=== PATIENT | male | born 1970 | race Caucasian/White ===

== ENCOUNTER → 2016-11-26 | Outpatient (CLI) | payer BC ==
--- NOTE | 2016-11-26 08:25 | MR ---
EXAMINATION TYPE: MR knee RT wo con DATE OF EXAM: 11/26/2016 8:11 AM COMPARISON: NONE HISTORY: Right knee pain TECHNIQUE: Multiplanar, multiecho imaging of the right knee is performed without IV contrast on a 3 T esla magnet. FINDINGS: There is mild grade IV chondromalacia involving the lateral patellar facet. There is grade III chondromalacia involving the weightbearing surface of the lateral femoral condyle. The medial fem oral condyle is unremarkable. Both menisci are unremarkable. Both the anterior and posterior cruciate ligaments are intact. Both the medial and lateral collateral ligament complexes are intact. The iliotibial band inserts nor jesse on Gerdy's tubercle. The popliteus muscle and tendon are normal. Both the quadriceps and patellar tendons are intact. There is no significant swelling in the Hoffa fa t space. No osseous lesion is seen. IMPRESSION: 1. CHONDROMALACIA DESCRIBED. 2. NO MENISCAL OR LIGAMENTOUS INJURY IS IDENTIFIED.
== END | disposition home or self-care (01) ==
LOC: RADMRIMAIN 07:32
PROVIDERS: ATTEND Orthopaedic Surgery
DX: M22.41 Chondromalacia patellae, right knee (principal)

== ENCOUNTER 2018-01-31 20:57 | Emergency (ER) | payer BC ==
[2018-01-31] MEDS ORDERED: MECLIZINE 12.5 MG TAB PO STA (22:14)
[2018-01-31] MEDS ORDERED: SODIUM CHLORIDE 0.9% 1,000 ML IV STA (22:14)
[2018-01-31] MEDS ORDERED: METOCLOPRAMIDE 5 MG/ML 2 ML VIAL IVP STA (22:16)
--- NOTE | 2018-01-31 22:19 | ED ---
General Adult HPI - General Chief complaint: Dizziness Stated complaint: near syncope Time Seen by Provider: 01/31/18 22:08 Source: patient, family, RN notes reviewed Mode of arrival: ambulatory Limitations: no limitations - History of Present Illness Initial comments: Patient is a pleasant 47-year-old male presenting to the emergency department with lightheadedness. Onset was a couple hours ago. Symptoms remained steady. Patient states he feels very lightheaded. Patient states when he closes his eyes he feels as if he passed out. Patient did not pass out. Symptoms have been somewhat steady. Patient did have a syncopal episode several months ago. No chest pain or dyspnea. No weakness or confusion. - Related Data Home Medications Medication Instructions Recorded Confirmed Albuterol Inhaler [Ventolin 2 puff INHALATION RT-QID PRN 10/03/15 01/31/18 Inhaler] Losartan [Cozaar] 50 mg PO DAILY 07/01/17 01/31/18 Montelukast [Singulair] 10 mg PO DAILY 07/01/17 01/31/18 Previous Rx's Medication Instructions Recorded Meclizine [Antivert] 25 mg PO TID PRN #12 tab 01/31/18 Metoclopramide HCl [Reglan] 10 mg PO Q6HR PRN #15 tablet 01/31/18 Allergies Allergy/AdvReac Type Severity Reaction Status Date / Time No Known Allergies Allergy Verified 01/31/18 21:38 Review of Systems ROS Statement: Those systems with pertinent positive or pertinent negative responses have been documented in the HPI. ROS Other: All systems not noted in ROS Statement are negative. Constitutional: Denies: fever Eyes: Denies: eye pain ENT: Denies: ear pain Respiratory: Denies: cough Cardiovascular: Denies: chest pain Endocrine: Denies: fatigue Gastrointestinal: Reports: nausea. Denies: abdominal pain Genitourinary: Denies: dysuria Musculoskeletal: Denies: back pain Skin: Denies: rash Neurological: Denies: headache, weakness, confusion Past Medical History Past Medical History: Asthma, Hypertension History of Any Multi-Drug Resistant Organisms: None Reported Past Surgical History: No Surgical Hx Reported Past Psychological History: No Psychological Hx Reported Smoking Status: Never smoker Past Alcohol Use History: Occasional Past Drug Use History: None Reported General Exam Limitations: no limitations General appearance: alert, in no apparent distress Head exam: Present: atraumatic Eye exam: Present: normal appearance, PERRL, EOMI. Absent: nystagmus ENT exam: Present: normal oropharynx Neck exam: Present: normal inspection Respiratory exam: Present: normal lung sounds bilaterally Cardiovascular Exam: Present: regular rate, normal rhythm GI/Abdominal exam: Present: soft. Absent: tenderness Extremities exam: Present: normal inspection. Absent: pedal edema, calf tenderness Neurological exam: Present: alert, oriented X3, CN II-XII intact. Absent: motor sensory deficit Expanded Neurological exam: Present: protecting the airway Speech: Present: fluid speech Cranial nerves: EOM's Intact: Normal, Facial Sensation: Normal Cerebellar function: Finger to Nose: Normal Sensory exam: Upper Extremity Light Touch: Normal, Lower Extremity Light Touch: Normal Motor strength exam: RUE: 5, LUE: 5, RLE: 5, LLE: 5 Eye Response: (4) open spontaneously Motor Response: (6) obeys commands Verbal Response: (5) oriented Psychiatric exam: Present: normal affect, normal mood Skin exam: Present: normal color Course Vital Signs 01/31/18 01/31/18 21:27 22:25 Temperature 99.4 F Pulse Rate 81 79 Respiratory 20 18 Rate Blood Pressure 198/107 167/86 O2 Sat by Pulse 99 98 Oximetry EKG Findings - EKG Comments: EKG Findings:: Normal sinus rhythm 76. CO 176. QRS 100. QT 390. QTC 438. Normal axis. LVH criteria. Inferior Q waves. No acute ST change. Medical Decision Making - Medical Decision Making Patient reevaluated and significantly improved. Patient is symptom-free. Patient and family updated on results. - Lab Data Result diagrams: 01/31/18 21:44 01/31/18 21:44 Lab Results 01/31/18 01/31/18 01/31/18 Range/Units 21:44 21:44 21:44 WBC 7.7 (3.8-10.6) k/uL RBC 5.88 (4.30-5.90) m/uL Hgb 16.2 (13.0-17.5) gm/dL Hct 47.5 (39.0-53.0) % MCV 80.7 (80.0-100.0) fL MCH 27.5 (25.0-35.0) pg MCHC 34.1 (31.0-37.0) g/dL RDW 13.7 (11.5-15.5) % Plt Count 376 (150-450) k/uL Neutrophils % 54 % Lymphocytes % 33 % Monocytes % 7 % Eosinophils % 4 % Basophils % 0 % Neutrophils # 4.2 (1.3-7.7) k/uL Lymphocytes # 2.6 (1.0-4.8) k/uL Monocytes # 0.5 (0-1.0) k/uL Eosinophils # 0.3 (0-0.7) k/uL Basophils # 0.0 (0-0.2) k/uL PT (9.0-12.0) sec INR (<1.2) APTT (22.0-30.0) sec Sodium 140 (137-145) mmol/L Potassium 4.0 (3.5-5.1) mmol/L Chloride 100 (98-107) mmol/L Carbon Dioxide 25 (22-30) mmol/L Anion Gap 15 mmol/L BUN 14 (9-20) mg/dL Creatinine 1.05 (0.66-1.25) mg/dL Est GFR (CKD-EPI)AfAm >90 (>60 ml/min/1.73 sqM) Est GFR (CKD-EPI)NonAf 85 (>60 ml/min/1.73 sqM) Glucose 118 H (74-99) mg/dL Calcium 10.2 (8.4-10.2) mg/dL Total Bilirubin 0.4 (0.2-1.3) mg/dL AST 26 (17-59) U/L ALT 29 (21-72) U/L Alkaline Phosphatase 74 (38-126) U/L Total Creatine Kinase 89 (55-170) U/L CK-MB (CK-2) 0.6 (0.0-2.4) ng/mL CK-MB (CK-2) Rel Index 0.7 Troponin I <0.012 (0.000-0.034) ng/mL Total Protein 7.9 (6.3-8.2) g/dL Albumin 4.7 (3.5-5.0) g/dL 01/31/18 Range/Units 21:44 WBC (3.8-10.6) k/uL RBC (4.30-5.90) m/uL Hgb (13.0-17.5) gm/dL Hct (39.0-53.0) % MCV (80.0-100.0) fL MCH (25.0-35.0) pg MCHC (31.0-37.0) g/dL RDW (11.5-15.5) % Plt Count (150-450) k/uL Neutrophils % % Lymphocytes % % Monocytes % % Eosinophils % % Basophils % % Neutrophils # (1.3-7.7) k/uL Lymphocytes # (1.0-4.8) k/uL Monocytes # (0-1.0) k/uL Eosinophils # (0-0.7) k/uL Basophils # (0-0.2) k/uL PT 9.5 (9.0-12.0) sec INR 1.0 (<1.2) APTT 24.3 (22.0-30.0) sec Sodium (137-145) mmol/L Potassium (3.5-5.1) mmol/L Chloride (98-107) mmol/L Carbon Dioxide (22-30) mmol/L Anion Gap mmol/L BUN (9-20) mg/dL Creatinine (0.66-1.25) mg/dL Est GFR (CKD-EPI)AfAm (>60 ml/min/1.73 sqM) Est GFR (CKD-EPI)NonAf (>60 ml/min/1.73 sqM) Glucose (74-99) mg/dL Calcium (8.4-10.2) mg/dL Total Bilirubin (0.2-1.3) mg/dL AST (17-59) U/L ALT (21-72) U/L Alkaline Phosphatase (38-126) U/L Total Creatine Kinase (55-170) U/L CK-MB (CK-2) (0.0-2.4) ng/mL CK-MB (CK-2) Rel Index Troponin I (0.000-0.034) ng/mL Total Protein (6.3-8.2) g/dL Albumin (3.5-5.0) g/dL - Radiology Data Radiology results: report reviewed (Computed tomography scan of the brain shows no acute process), image reviewed (Chest x-ray shows no acute process) Disposition Clinical Impression: Light-headedness Disposition: HOME SELF-CARE Condition: Stable Instructions: Dizziness (ED) Additional Instructions: Please follow-up with primary care physician in the next day or 2 for recheck. If symptoms continue consider neurology or ENT evaluation. Return for increased dizziness, confusion, weakness, worsening or changing symptoms or other concerns. Prescriptions: Meclizine [Antivert] 25 mg PO TID PRN #12 tab PRN Reason: dizziness Metoclopramide HCl [Reglan] 10 mg PO Q6HR PRN #15 tablet PRN Reason: Nausea Is patient prescribed a controlled substance at d/c from ED?: No Referrals: Kit Bhatt DO [Primary Care Provider] - 1-2 days Time of Disposition: 23:39
[2018-01-31 22:26] VITALS: RESP 18
[2018-01-31 22:29] LABS: Basophils % (A) 0 %; Eosinophils # (A) 0.3 k/uL (0-0.7); Eosinophils % (A) 4 %; HCT 47.5 % (39.0-53.0); HGB 16.2 gm/dL (13.0-17.5); Lymphocytes # (A) 2.6 k/uL (1.0-4.8); Lymphocytes % (A) 33 %; MCH 27.5 pg (25.0-35.0); MCHC 34.1 g/dL (31.0-37.0); MCV 80.7 fL (80.0-100.0); Mean Platelet Volume 6.8; Monocytes # (A) 0.5 k/uL (0-1.0); Monocytes % (A) 7 %; Neutrophils # (A) 4.2 k/uL (1.3-7.7); Neutrophils % (A) 54 %; Platelet Count 376 k/uL (150-450); RBC 5.88 m/uL (4.30-5.90); RDW 13.7 % (11.5-15.5); WBC 7.7 k/uL (3.8-10.6)
[2018-01-31 22:36] LABS: ALT 29 U/L (21-72); AST 26 U/L (17-59); Albumin 4.7 g/dL (3.5-5.0); Alkaline Phosphatase 74 U/L (38-126); Anion Gap 15 mmol/L; Blood Urea Nitrogen 14 mg/dL (9-20); Calcium 10.2 mg/dL (8.4-10.2); Carbon Dioxide 25 mmol/L (22-30); Chloride 100 mmol/L (98-107); Glucose 118 mg/dL (74-99); Sodium 140 mmol/L (137-145); Total Bilirubin 0.4 mg/dL (0.2-1.3); Total Protein 7.9 g/dL (6.3-8.2)
[2018-01-31 22:38] LABS: Partial Thromboplastin Time 24.3 sec (22.0-30.0); Prothrombin Time 9.5 sec (9.0-12.0)
[2018-01-31 22:43] LABS: Creatine Kinase 89 U/L (55-170)
[2018-01-31 22:55] LABS: Creatine Kinase MB 0.6 ng/mL (0.0-2.4); Troponin I <0.012 ng/mL (0.000-0.034)
--- NOTE | 2018-01-31 23:20 | CT ---
EXAMINATION TYPE: CT brain wo con DATE OF EXAM: 01/31/2018 COMPARISON: 07/01/2017 HISTORY: Dizziness and near syncope. CT DLP: 1199 mGycm. Automated Exposure Control for Dose Reduction was Utilized. TECHNIQUE: CT scan of the head is performed without contrast. FINDINGS: Ventricles of normal size. There is no mass effect nor midline shift. There is no sign of intracranial hemorrhage. The calvarium is intact. CONCLUSION: Normal CT scan of the brain. No change.
--- NOTE | 2018-01-31 23:25 | XR ---
EXAMINATION TYPE: XR chest 2V DATE OF EXAM: 01/31/2018 COMPARISON: 07/01/2017 HISTORY: Syncope TECHNIQUE: Frontal and lateral views of the chest are obtained. FINDINGS: Heart and mediastinum are normal. Lungs are clear. Diaphragm is normal. There are chest le ads. Bony thorax is intact. IMPRESSION: No active cardiopulmonary disease. There is slight improved inspiration compared to old exam.
[2018-01-31 23:51] VITALS: BP 140/51; PULSE 77; TEMP 97.7
== END 2018-01-31 23:50 | disposition home or self-care (01) ==
LOC: EC 20:57
DX: R42 Dizziness and giddiness (principal); J45.909 Unspecified asthma, uncomplicated; I10 Essential (primary) hypertension; Z79.899 Other long term (current) drug therapy
CPT/HCPCS: 99284; 96374; 96361; 36415; 93005; 80053; 82550; 82553; 84484; 85025; 85610; 85730; 71046; 70450; J2765

== ENCOUNTER 2018-05-23 03:43 | Emergency (ER) | payer BC ==
[2018-05-23 03:47] VITALS: TEMP 97.9
[2018-05-23] MEDS ORDERED: IPRATROPIUM-ALBUTEROL 3 ML NEB INHALATION STA (03:59)
[2018-05-23] MEDS ORDERED: predniSONE 20 MG TAB PO STA (04:46)
--- NOTE | 2018-05-23 04:47 | ED ---
SOB HPI - General Chief Complaint: Shortness of Breath Stated Complaint: JA Time Seen by Provider: 05/23/18 04:07 Source: patient Mode of arrival: ambulatory Limitations: no limitations - History of Present Illness Initial Comments: This patient is a 47-year-old man with a history of asthma who presents to be evaluated for what he believes is an asthma exacerbation. The patient states that he has been feeling symptoms consistent with his usual asthma exacerbation symptoms since this evening. He states that he knew he was going to work where it would be hotter and when his home albuterol was not bringing him back to his baseline breathing he decided to be evaluated here. The patient states he has had a little bit of cough he has had some wheezing. He is not having fever or chills. No chest pain. No change in urination or bowel movements. No leg pain or swelling. Patient states that his asthma is usually managed with albuterol. His last course of prednisone was many years ago. MD Complaint: shortness of breath, cough, "asthma attack" Onset/Timin -: hour(s) Consistency: constant Improves With: bronchodilators Worsens With: other Known History Of: asthma Associated Symptoms: cough Treatments Prior to Arrival: bronchodilator - Related Data Home Medications Medication Instructions Recorded Confirmed Albuterol Inhaler [Ventolin 2 puff INHALATION RT-QID PRN 10/03/15 01/31/18 Inhaler] Losartan [Cozaar] 50 mg PO DAILY 07/01/17 01/31/18 Montelukast [Singulair] 10 mg PO DAILY 07/01/17 01/31/18 Previous Rx's Medication Instructions Recorded Meclizine [Antivert] 25 mg PO TID PRN #12 tab 01/31/18 Metoclopramide HCl [Reglan] 10 mg PO Q6HR PRN #15 tablet 01/31/18 predniSONE 60 mg PO DAILY #30 tab 05/23/18 Allergies Allergy/AdvReac Type Severity Reaction Status Date / Time No Known Allergies Allergy Verified 05/23/18 03:47 Review of Systems ROS Statement: Those systems with pertinent positive or pertinent negative responses have been documented in the HPI. ROS Other: All systems not noted in ROS Statement are negative. Constitutional: Denies: fever, chills, weakness Respiratory: Reports: cough, dyspnea, wheezes. Denies: hemoptysis Cardiovascular: Denies: chest pain, edema, syncope Gastrointestinal: Denies: abdominal pain, vomiting, diarrhea Genitourinary: Denies: dysuria, frequency Musculoskeletal: Denies: back pain Neurological: Denies: headache Past Medical History Past Medical History: Asthma, Hypertension History of Any Multi-Drug Resistant Organisms: None Reported Past Surgical History: No Surgical Hx Reported Past Psychological History: No Psychological Hx Reported Smoking Status: Never smoker Past Alcohol Use History: Occasional Past Drug Use History: None Reported General Exam Limitations: no limitations General appearance: alert, in no apparent distress Head exam: Present: atraumatic, normocephalic Eye exam: Present: normal appearance. Absent: scleral icterus, conjunctival injection ENT exam: Present: normal oropharynx Respiratory exam: Present: wheezes. Absent: respiratory distress, rales, rhonchi, stridor, chest wall tenderness, accessory muscle use, decreased breath sounds, prolonged expiratory Cardiovascular Exam: Present: regular rate, normal rhythm, normal heart sounds. Absent: systolic murmur, diastolic murmur, rubs, gallop GI/Abdominal exam: Present: soft. Absent: distended, tenderness, guarding, rebound, mass Extremities exam: Present: normal inspection, normal capillary refill. Absent: pedal edema, calf tenderness Back exam: Present: normal inspection. Absent: CVA tenderness (R) Neurological exam: Present: alert Skin exam: Present: warm, dry, intact, normal color. Absent: rash Course Vital Signs 05/23/18 05/23/18 05/23/18 03:45 04:00 04:10 Temperature 97.9 F Pulse Rate 74 80 80 Respiratory 22 Rate Blood Pressure 148/91 O2 Sat by Pulse 100 Oximetry 05/23/18 05:11 Temperature Pulse Rate 78 Respiratory 16 Rate Blood Pressure 132/89 O2 Sat by Pulse 99 Oximetry Medical Decision Making - Medical Decision Making This patient is a 47-year-old man having typical asthma exacerbation symptoms for him. He has had good relief with nebulized albuterol here. Given that he has required a number of treatments tonight, will provide short course of prednisone. Discussed appropriate follow-up and return parameters. Disposition Clinical Impression: Asthma with acute exacerbation Disposition: HOME SELF-CARE Condition: Good Instructions: Asthma (ED) Prescriptions: predniSONE 60 mg PO DAILY #30 tab Is patient prescribed a controlled substance at d/c from ED?: No Referrals: Kit Bhatt DO [Primary Care Provider] - 1-2 days
[2018-05-23 05:12] VITALS: BP 132/89; PULSE 78; RESP 16
== END 2018-05-23 05:14 | disposition home or self-care (01) ==
LOC: EC 03:43
DX: J45.901 Unspecified asthma with (acute) exacerbation (principal); I10 Essential (primary) hypertension; Z79.899 Other long term (current) drug therapy
CPT/HCPCS: 94640; 99284; J7512

== ENCOUNTER 2019-04-10 15:48 | Emergency (ER) | payer BC ==
[2019-04-10] MEDS ORDERED: KETOROLAC 30 MG/ML 1 ML VIAL IVP STA (16:34)
[2019-04-10] MEDS ORDERED: diphenhydrAMINE 50 MG/ML 1 ML VIAL IVP STA (16:34)
[2019-04-10] MEDS ORDERED: SODIUM CHLORIDE 0.9% 1,000 ML IV ONE (16:34)
--- NOTE | 2019-04-10 17:05 | ED ---
Headache HPI - General Chief Complaint: Headache Stated Complaint: headache x 3 Time Seen by Provider: 04/10/19 16:05 Mode of arrival: ambulatory Limitations: no limitations - History of Present Illness Initial Comments: 48-year-old male presenting today for chief complaint of headache 2 days. Patient states his history of chronic migraines for which she takes Imitrex. Patient states Imitrex has not been able to help the headache. Patient states this is not the worst headache of his life. He states is identical in characteristic of his previous migraines. Patient states he has had present in the past for a portion of the headache. Patient states that one of her medications they gave a few years ago seemed to help. Patient denies any vomiting denies any head injury. He denies visual changes worse changes weakness of the upper or lower extremities, patient denies any neck stiffness fevers or dizziness. Patient denies any anticoagulation use history of aneurys m. Patient states he is sensitive to lights, which is typical of his migraines. Patient states he has had previous CTs and MRIs of the brain. Remaining review of systems negative upon arrival patient appears well no signs of acute distress. - Related Data Home Medications Medication Instructions Recorded Confirmed Albuterol Inhaler [Ventolin 2 puff INHALATION RT-QID PRN 10/03/15 04/10/19 Inhaler] Montelukast [Singulair] 10 mg PO DAILY 07/01/17 04/10/19 Allergies Allergy/AdvReac Type Severity Reaction Status Date / Time No Known Allergies Allergy Verified 04/10/19 16:53 Review of Systems ROS Statement: Those systems with pertinent positive or pertinent negative responses have been documented in the HPI. ROS Other: All systems not noted in ROS Statement are negative. Past Medical History Past Medical History: Asthma, Hypertension History of Any Multi-Drug Resistant Organisms: None Reported Past Surgical History: No Surgical Hx Reported Past Psychological History: No Psychological Hx Reported Smoking Status: Never smoker Past Alcohol Use History: Occasional Past Drug Use History: None Reported General Exam - General Exam Comments Initial Comments: General: The patient is awake and alert, in no distress, and does not appear acutely ill. Eye: +3 mm pupils are equal, round and reactive to light, extra-ocular movements are intact. No nystagmus. There is normal conjunctiva bilaterally. No signs of icterus. No photophobia Ears, nose, mouth and throat: There are moist mucous membranes and no oral lesions. Oropharynx was not erythematous there is no tonsillar enlargement exudates or lesions. Uvula midline. Tympanic membranes are not erythematous or is no effusions bulging or retraction. No tenderness to palpation of the mastoid. No anterior cervical lymphadenopathy. Rhinorrhea, clear and bilateral nares. No tripoding, no drooling. Neck: The neck is supple, there is no tenderness or JVD. No nuchal rigidity Cardiovascular: There is a regular rate and rhythm. No murmur, rub or gallop is appreciated. Respiratory: Lungs are clear to auscultation, respirations are non-labored, breath sounds are equal. No wheezes, stridor, rales, or rhonchi. No retractions or abdominal breathing. Gastrointestinal: Soft, non-distended, non-tender abdomen without masses or organomegaly noted. There is no rebound or guarding present. Bowel sounds are unremarkable. Musculoskeletal: Normal ROM, no tenderness. Strength 5/5. Sensation intact. Radial pulses equal bilaterally 2+. Neurological: A&O x 3. CN II-XII intact, memory intact to immediately, intermediate and custodial recall. Able to follow simple verbal. Able to name a common object (pen). High quality, labial (pa) and lingual (la) speech. Low quality posterior pharynx/larynx (ga) voice sounds. Able to express general knowledge (days in a week). No hemineglect or inattention noted. Finger agnosia (-) and spatially oriented (identified L index finger touched R shoulder with L index finger). Light touch and temperature sensation present over the face, chest, abdomen, back, UE bilaterally, and LE bilaterally. Able to localize point during point localization b/l and extinction. No visible bulk atrophy, hypertrophy, fasciculations, or myoclonus of the UE or LE b/l. Full PROM in UE and LE b/l. Bilateral muscle strength 5/5 for the following muscles: deltoid, biceps, triceps, brachioradialis, wrist extensors/flexor, hip flexor, hip abductors/adductors, hamstrings, quadriceps, feet dorsiflexors/plantar flexors. Finger to nose, finger to the examiners finger, and heel to gallardo coordinated a nd accurate b/l. Coordinated and even demonstration of hand flip, finger to thumb, and toe tap b/l. (-) pronator drift. Skin: Skin is warm and dry and no rashes or lesions are noted. No extremity edema Psychiatric: Cooperative Limitations: no limitations Course Vital Signs 04/10/19 04/10/19 15:53 18:14 Temperature 98.4 F 98.7 F Pulse Rate 67 66 Respiratory 18 16 Rate Blood Pressure 153/104 141/90 O2 Sat by Pulse 98 97 Oximetry Medical Decision Making - Medical Decision Making Very well-appearing 48-year-old male history of chronic migraines presenting headache. Patient states is typical of his previous migraines. He denies any alarming factors. Patient has no focal neurological deficits. Patient afebrile. No signs of nuchal rigidity. Patient denies sudden onset of this being the worst headache of his life. Patient's history of hypertension and has elevated BP on arrival. Patient prefers treatment he states he has had previous imaging studies. After treatment with Toradol and Benadryl patient states his headache went from a 10 out of 10-2 out of 10. Patient states it feels that it is getting better by the minute. At this time given symptomatically. Patient has no focal deficits the patient is requesting discharge the patient is stable for discharge with outpatient primary care follow-up. I discussed the case with him by Dr. Rodríguez of his critical care plan discharge at this time. Disposition Clinical Impression: Headache Disposition: HOME SELF-CARE Condition: Good Instructions (If sedation given, give patient instructions): Acute Headache (ED) Additional Instructions: Please use medication as discussed. Please follow-up with family doctor in the next 2 days. Please return to emergency room if the symptoms increase or worsen or for any other concerns. Is patient prescribed a controlled substance at d/c from ED?: No Referrals: Kit Bhatt DO [Primary Care Provider] - 1-2 days Time of Disposition: 17:50
[2019-04-10 18:15] VITALS: BP 141/90; PULSE 66; RESP 16; TEMP 98.7
== END 2019-04-10 18:14 | disposition home or self-care (01) ==
LOC: EC 15:48
DX: R51 Headache (principal); I10 Essential (primary) hypertension; J45.909 Unspecified asthma, uncomplicated; Z86.69 Personal history of other diseases of the nervous system and sense organs; Z79.899 Other long term (current) drug therapy
CPT/HCPCS: 99283; 96374; 96375; 96361; J1200; J1885

== ENCOUNTER 2020-02-28 11:50 | Emergency (ER) | payer OTHER, BC ==
[2020-02-28 11:56] VITALS: RESP 20
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
--- NOTE | 2020-02-28 12:41 | XR ---
EXAMINATION TYPE: XR knee complete RT DATE OF EXAM: 02/28/2020 CLINICAL HISTORY: pain TECHNIQUE: Three views of the right knee are obtained. COMPARISON: None. FINDINGS: There is no acute fracture/dislocation. Degenerative spurring of the superior patellar remi e as well as the medial femoral condyle. Moderate narrowing medial tibiofemoral joint space. The over lying soft tissue appears unremarkable. IMPRESSION: There is no acute fracture or dislocation.ICD 10 NO FRACTURE, INITIAL EVALUATION
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
[2020-02-28 12:50] VITALS: BP 134/91; PULSE 96; TEMP 98
== END 2020-02-28 12:48 | disposition home or self-care (01) ==
LOC: EC 11:50
DX: M25.571 Pain in right ankle and joints of right foot (principal); M25.561 Pain in right knee; M25.522 Pain in left elbow; S00.83XA Contusion of other part of head, initial encounter; J45.909 Unspecified asthma, uncomplicated; Z79.51 Long term (current) use of inhaled steroids; V28.4XXA Motorcycle driver injured in noncollision transport accident in traffic accident, initial encounter; Y92.488 Other paved roadways as the place of occurrence of the external cause; Y93.89 Activity, other specified
CPT/HCPCS: 71045; 72170; 99283

== ENCOUNTER 2020-05-30 03:12 | Emergency (ER) | payer BC ==
[2020-05-30 03:19] VITALS: RESP 18
[2020-05-30] MEDS ORDERED: METOCLOPRAMIDE 5 MG/ML 2 ML VIAL IVP STA (03:23)
[2020-05-30] MEDS ORDERED: diphenhydrAMINE 50 MG/ML 1 ML VIAL IVP STA (03:23)
[2020-05-30] MEDS ORDERED: SODIUM CHLORIDE 0.9% 500 ML 500 ML IV STA (03:24)
[2020-05-30] MEDS ORDERED: KETOROLAC 15 MG/ML 1 ML VIAL IVP STA (03:24)
--- NOTE | 2020-05-30 03:44 | ED ---
Headache HPI - General Chief Complaint: Headache Stated Complaint: headache Time Seen by Provider: 05/30/20 03:21 Mode of arrival: ambulatory - History of Present Illness Complaint: headache Onset/Timin -: hour(s) Onset Description: gradual Location: left, frontal, temporal Severity: moderate Quality: aching, throbbing Consistency: constant Improves With: nothing Worsens With: none Context: occurred at rest Associated Symptoms: nausea, photophobia Treatments Prior to Arrival: prescription analgesic - Related Data Home Medications Medication Instructions Recorded Confirmed Albuterol Inhaler (Mhu) [Ventolin 2 puff INHALATION RT-QID PRN 10/03/15 04/10/19 Inhaler] Montelukast [Singulair] 10 mg PO DAILY 07/01/17 04/10/19 Allergies Allergy/AdvReac Type Severity Reaction Status Date / Time No Known Allergies Allergy Verified 05/30/20 03:19 Review of Systems ROS Statement: Those systems with pertinent positive or pertinent negative responses have been documented in the HPI. ROS Other: All systems not noted in ROS Statement are negative. Constitutional: Denies: fever, chills Respiratory: Denies: cough, dyspnea Gastrointestinal: Denies: abdominal pain, nausea, vomiting Skin: Denies: rash Past Medical History Past Medical History: Asthma, Hypertension Additional Past Medical History / Comment(s): Migraines History of Any Multi-Drug Resistant Organisms: None Reported Past Surgical History: No Surgical Hx Reported Past Psychological History: No Psychological Hx Reported Smoking Status: Never smoker Past Alcohol Use History: Occasional Past Drug Use History: None Reported General Exam General appearance: alert, in no apparent distress Head exam: Present: atraumatic, normocephalic Eye exam: Present: normal appearance, PERRL, EOMI. Absent: scleral icterus, conjunctival injection ENT exam: Present: normal oropharynx Neck exam: Present: full ROM. Absent: tenderness, meningismus Respiratory exam: Present: normal lung sounds bilaterally. Absent: respiratory distress, wheezes, rales, rhonchi, stridor Cardiovascular Exam: Present: regular rate, normal rhythm, normal heart sounds. Absent: systolic murmur, diastolic murmur, rubs, gallop Extremities exam: Present: normal inspection, normal capillary refill Back exam: Present: normal inspection. Absent: CVA tenderness (R), CVA tenderness (L) Neurological exam: Present: alert, oriented X3, CN II-XII intact. Absent: motor sensory deficit Skin exam: Present: warm, dry, intact, normal color. Absent: rash Course Vital Signs 05/30/20 03:16 Temperature 97.8 F Pulse Rate 79 Respiratory 18 Rate Blood Pressure 158/94 O2 Sat by Pulse 98 Oximetry Disposition Clinical Impression: Migraine headache Disposition: HOME SELF-CARE Condition: Good Instructions (If sedation given, give patient instructions): Acute Headache (ED) Is patient prescribed a controlled substance at d/c from ED?: No Referrals: Kit Bhatt DO [Primary Care Provider] - 1-2 days
[2020-05-30 04:32] VITALS: BP 140/94; PULSE 70; TEMP 97.5
== END 2020-05-30 04:32 | disposition home or self-care (01) ==
LOC: EC 03:12
DX: G43.909 Migraine, unspecified, not intractable, without status migrainosus (principal); J45.909 Unspecified asthma, uncomplicated; Z79.899 Other long term (current) drug therapy
CPT/HCPCS: 99283; 96374; 96375 ×2; 96361; J1200; J2765; J1885

== ENCOUNTER → 2020-05-30 | Outpatient (CLI) | payer BC ==
--- NOTE | 2020-05-30 12:55 | XR ---
EXAMINATION TYPE: XR foot complete LT DATE OF EXAM: 05/30/2020 COMPARISON: NONE HISTORY: Pain TECHNIQUE: Three views are submitted. FINDINGS: The osseous structures are intact. There is no acute fracture or dislocation. Joint spaces are p reserved. Some lucency through the distal phalanx first digit. Calcaneal spurs are seen. IMPRESSION: 1. Lucency involving the distal phalanx of the first digit correlate with point tenderness for fract ure.
== END | disposition home or self-care (01) ==
LOC: RADXRMAIN 12:34
PROVIDERS: ATTEND Family Medicine
DX: R93.7 Abnormal findings on diagnostic imaging of other parts of musculoskeletal system (principal); M79.672 Pain in left foot

== ENCOUNTER → 2021-02-17 | Outpatient (CLI) | payer BC ==
--- NOTE | 2021-02-17 21:47 | MR ---
EXAMINATION TYPE: MR knee LT wo con DATE OF EXAM: 02/17/2021 COMPARISON: None HISTORY: Left knee pain and swelling and locking TECHNIQUE: Multiplanar, multisequence imaging of the left knee is performed without IV contrast. FINDINGS: MEDIAL MENISCUS: Anterior horn of the medial meniscus appears intact. Posterior horn of the medial me niscus has some horizontal signal extending towards the superior articular surface. A vertical signal may be near the junction of the anterior and posterior horns of meniscus. Findings could be compatib le with a horizontal tear the posterior horn medial meniscus with a possible small radial tear. LATERAL MENISCUS: There is linear signal within the anterior horn medial meniscus compatible some int ernal derangement or type I tear. Communication with the articular surface not clearly identified. Po sterior horn lateral meniscus appears intact. CRUCIATE LIGAMENTS: The anterior and posterior cruciate ligaments are intact and unremarkable. COLLATERAL LIGAMENTS: Lateral collateral ligament appears intact. The medial collateral ligament has increased signal adjacent. The ligament is intact. Findings could be compatible with strain. EXTENSOR MECHANISM: Visualized quadriceps and patellar tendons are intact. EFFUSION: There is a small suprapatellar joint effusion. POPLITEAL CYST: No popliteal/ware cyst. TRICOMPARTMENT SPACES: Joint spaces are preserved. CARTILAGE: Intact BONE MARROW SIGNAL: There is increased signal within the medial tibial plateau compatible with a cont usion. Note is made of soft tissue swelling along the medial knee adjacent to the tibial plateau. OTHER: No additional significant abnormality is appreciated. IMPRESSION: 1. Contusion of the medial tibial plateau with adjacent soft tissue swelling. 2. Small joint effusion. 3. Horizontal tear posterior horn medial meniscus. A radial tear may be near the anterior portion. 4. Type I internal tear anterior horn medial meniscus.
== END | disposition home or self-care (01) ==
LOC: RADMRIMAIN 13:04
PROVIDERS: ATTEND Orthopaedic Surgery
DX: S80.02XA Contusion of left knee, initial encounter (principal); M23.322 Other meniscus derangements, posterior horn of medial meniscus, left knee; M23.312 Other meniscus derangements, anterior horn of medial meniscus, left knee

== ENCOUNTER 2021-06-26 08:37 | Day surgery (SDC) | payer BC ==
[2021-06-24 12:04] VITALS: BMI 33.3
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
[~2021-06-26 08:37] MED LIST: DEXAMETHASONE SOD PHOSPHATE 4 MG/ML 1 ML VIAL IV ONE; HYDROmorphone 0.5 MG/0.5 ML SYRINGE IVP PRN; LIDOCAINE 1% (10MG/ML) FOR IV START INTRADERMA PRN; MIDAZOLAM 2 MG/2 ML VIAL IV PRN; ONDANSETRON 4 MG/2 ML VIAL IVP ONE; ceFAZolin 3 GM in SODIUM CHLORIDE 0.9% 100 ML IVPB PRN
[2021-06-26] MEDS: LACTATED RINGERS 1,000 ML IV SCH ×2 (09:18→10:31)
[2021-06-26] MEDS ORDERED: SUCCINYLCHOLINE CHLORIDE VIAL 200 MG/10 ML VIAL IV ONE (10:30)
[2021-06-26] MEDS ORDERED: PROPOFOL 10 MG/ML 20 ML VIAL IV ONE (10:30)
[2021-06-26] MEDS ORDERED: LIDOCAINE 1% INJ 10MG/ML (20 ML MDV) ONE (10:30)
[2021-06-26] MEDS ORDERED: fentaNYL (PF) 50 MCG/ML 2 ML AMP ONE (10:30)
[2021-06-26] MEDS ORDERED: EPINEPHrine (PF) 1 ML in SODIUM CHLORIDE 0.9% IRRIGATIO 3,000 ML IRRIGATION ONE ×4 (10:35)
--- NOTE | 2021-06-26 11:19 | P.OP ---
Date of Procedure: 06/26/21 Preoperative Diagnosis: Left knee internal derangement Postoperative Diagnosis: Left knee posterior medial meniscal tear/grade 3 chondral injury distal posterior central medial femoral condyle Procedure(s) Performed: Left knee arthroscopic partial medial meniscectomy/medial femoral chondrectomy/microfracture medial femoral condyle Anesthesia: HAYDEN Surgeon: Reji Huang Estimated Blood Loss (ml): 10 Pathology: none sent Condition: stable Disposition: PACU Indications for Procedure: The patient's a 50-year-old male who presents with progressive left knee pain and mechanical symptoms since December of this year despite attempted conservative measures. A discussion of the risks and benefits of operative intervention versus continued conservative measures was made with the patient. He opted proceed with surgery. Operative risks to include infection, neurovascular injury, development of blood clots, possible incomplete resolution of symptoms, possible worsening symptoms and need for subsequent procedures was discussed. Informed consent was obtained. Operative Findings: As below Description of Procedure: The patient was brought to the operating room, and after induction of general anesthesia examined the left knee. Collaterals were stable, Dc was negative, and posterior drawer was negative. The left lower extremity was prepped and draped in a normal fashion. A superior lateral portal was made thr ough a 3 mm skin incision superior and lateral to the patella. This was used for outflow. A lateral portal was made through a 5 mm vertical skin incision lateral to the patella tendon above the joint line. Diagnostic arthroscopy was performed. On inspection of the medial compartment, a complex tear involving the posterior horn of the medial meniscus in the white-red junction was noted. This was debrided back to stable base with straight baskets and a motorized shaver. A corresponding grade 3 chondral injury/defect involving the posterior central portion of the medial femoral condyle was noted. There was a loose chondral flap. This was debrided back to a stable base with a motorized shaver. Microfracture was performed with a power pick breeching the subchondral surface down to the bone marrow elements. On inspection of the notch, the anterior cruciate ligament appeared to be intact. On inspection of the lateral compartment, no significant meniscal or cartilage pathology was noted. On inspection of the patellofemoral articulation, there was chondral fibrillation however no loose chondral fragments. The gutters were clear debris. The knee was then thoroughly irrigated. The portals were closed with Steri-Strips. A sterile dressing was applied in addition to a compression stocking. The patient was awoken from general anesthesia and transferred to recovery room in good condition. Blood loss was estimated at 10 mL. No complications were incurred.
[2021-06-26] MEDS ORDERED: KETOROLAC 15 MG/ML 1 ML VIAL ONE (11:35)
[2021-06-26 11:36] VITALS: RESP 16; TEMP 97.9
[2021-06-26] MEDS ORDERED: KETOROLAC 15 MG/ML 1 ML VIAL IVP ONE (11:39)
[2021-06-26] MEDS ORDERED: HYDROcodone/APAP 5-325MG 1 EACH TAB ONE (12:31)
[2021-06-26] MEDS ORDERED: HYDROcodone/APAP 5-325MG 1 EACH TAB PO ONE (12:35)
[2021-06-26 13:16] VITALS: BP 117/78; PULSE 75
== END 2021-06-26 13:32 | disposition home or self-care (01) ==
LOC: OR 08:37
PROVIDERS: ATTEND Orthopaedic Surgery
DX: M23.222 Derangement of posterior horn of medial meniscus due to old tear or injury, left knee (principal); J45.909 Unspecified asthma, uncomplicated; M24.19 Other articular cartilage disorders, other specified site; Z79.899 Other long term (current) drug therapy
CPT/HCPCS: 29881; 29879; J2250; J0330; J1100; J0690; J2405; J0171; J2001; J3010; J1885; J2704

== ENCOUNTER 2023-05-23 05:17 | Emergency (ER) | payer BC ==
[2023-05-23 05:26] VITALS: TEMP 98.1
[2023-05-23] MEDS ORDERED: methylPREDNISolone SOD SUCCI 125 MG/2 ML VIAL IM ONE (06:09)
[2023-05-23] MEDS ORDERED: IPRATROPIUM-ALBUTEROL 3 ML NEB INHALATION STA (06:09)
--- NOTE | 2023-05-23 06:10 | ED ---
General Adult HPI - General Chief complaint: Shortness of Breath Stated complaint: poss Asthma Attack Time Seen by Provider: 05/23/23 06:00 Source: patient, RN notes reviewed Mode of arrival: ambulatory Limitations: no limitations - History of Present Illness Initial comments: This a 52-year-old male presents emergency Department with chief complaint river rtness of breath. Patient states his asthma is currently bothering him. He states he woke [place] in [place] states that he bathroom for further (his inhaler did not have much relief. He states he woke up a few hours later. Work states she still had wheezing and uses inhaler again and tried some steam over the sink with no relief. Patient states this has some chest tightness. Denies any leg pain or leg swelling no history DVT or PE. Denies any prior cardiac disease. Patient has not had any recent illnesses he states that he's had issues with his asthma due to poor air quality throughout the summer. - Related Data Home Medications Medication Instructions Recorded Confirmed Albuterol Inhaler [Ventolin 2 puff INHALATION RT-QID PRN 10/03/15 06/24/21 Inhaler] Montelukast [Singulair] 10 mg PO DAILY 07/01/17 06/24/21 Previous Rx's Medication Instructions Recorded HYDROcodone/APAP 5-325MG [[place] 1 tab PO Q6HR PRN #21 tab 06/26/21 5-325] Ketorolac [Toradol] 10 mg PO Q8HR #15 tab 02/14/23 Lidocaine 5% Patch [Lidoderm] 1 patch TOPICAL DAILY #10 patch 02/14/23 predniSONE 50 mg PO DAILY #5 tab 05/23/23 Allergies Allergy/AdvReac Type Severity Reaction Status Date / Time No Known Allergies Allergy Verified 05/23/23 05:25 Review of Systems ROS Statement: Those systems with pertinent positive or pertinent negative responses have been documented in the HPI. ROS Other: All systems not noted in ROS Statement are negative. Past Medical History Past Medical History: Asthma, Hypertension Additional Past Medical History / Comment(s): Migraines History of Any Multi-Drug Resistant Organisms: None Reported Past Surgical History: No Surgical Hx Reported Past Psychological History: No Psychological Hx Reported Smoking Status: Never smoker Past Alcohol Use History: Occasional Past Drug Use History: None Reported General Exam Limitations: no limitations General appearance: alert, in no apparent distress Head exam: Present: atraumatic, normocephalic, normal inspection Eye exam: Present: normal appearance, PERRL, EOMI. Absent: scleral icterus, conjunctival injection, periorbital swelling ENT exam: Present: normal exam, normal oropharynx, mucous membranes moist Neck exam: Present: normal inspection, full ROM. Absent: tenderness, meningismus, lymphadenopathy Respiratory exam: Present: wheezes. Absent: normal lung sounds bilaterally, respiratory distress, rales, rhonchi, stridor Cardiovascular Exam: Present: regular rate, normal rhythm, normal heart sounds. Absent: systolic murmur, diastolic murmur, rubs, gallop, clicks GI/Abdominal exam: Present: soft, normal bowel sounds. Absent: distended, tenderness, guarding, rebound, rigid Extremities exam: Absent: pedal edema Neurological exam: Present: alert Course Vital Signs 05/23/23 05/23/23 05/23/23 05:24 06:19 06:31 Temperature 98.1 F Pulse Rate 69 69 74 Respiratory 24 Rate Blood Pressure 151/104 O2 Sat by Pulse 98 Oximetry - Reevaluation(s) Reevaluation #1: 05/23/23 06:51 Patient was reevaluated after DuoNeb treatment states that his shortness breath has resolved EKG Findings - EKG Comments: EKG Findings:: EKG performed at 6:25 sinus rhythm with rate of 68 CA 180 QRS 96 QT/QTC 392/409 - EKG Results: EKG: interpreted by [facility] Medical Decision Making - Medical Decision Making Was pt. sent in by a medical professional or institution (, PA, DELIVERY SUPERVISOR, urgent care, hospital, or prison...) When possible be specific @ -No Did you speak to anyone other than the patient for history (EMS, parent, family, police, friend...)? What history was obtained from this source @ -No Did you review nursing and triage notes (agree or disagree)? Why? @ -I reviewed and agree with nursing and triage notes Were old charts reviewed (outside hosp., previous admission, EMS record, old EKG, old radiological studies, urgent care reports/EKG's, prison records)? Report findings @ -Reviewed prior chest x-rays, EKGs Differential Diagnosis (chest pain, altered mental status, abdominal pain women, abdominal pain men, vaginal bleeding, weakness, fever, dyspnea, syncope, headache, dizziness, GI bleed, back pain, seizure, CVA, palpatations, mental health, musculoskeletal)? @ -Differential Dyspnea: Coronary syndrome, arrhythmia, tamponade, asthma, COPD, pulmonary embolism, p neumonia, pneumothorax, pulmonary effusion, anaphylaxis, diabetic ketoacidosis, flailed chest, pulmonary contusion, diaphragmatic rupture, anemia, neuromuscular, this is not meant to be an all-inclusive list. le EKG interpreted by me (3pts min.). @ -As above X-rays interpreted by me (1pt min.). @ -Chest x-ray no acute cardiopulmonary process. CT interpreted by me (1pt min.). @ -None done U/S interpreted by me (1pt. min.). @ -None done What testing was considered but not performed or refused? (CT, X-rays, U/S, labs)? Why? @ -None What meds were considered but not given or refused? Why? @ -None Did you discuss the management of the patient with other professionals (professionals i.e. , PA, DELIVERY SUPERVISOR, lab, RT, psych nurse, director of social services, machine learning intern, teacher, community service patrol officer, case resource manager)? Give summary @ -No Was smoking cessation discussed for >3mins.? @ -No Was critical care preformed (if so, how long)? @ -No Were there social determinants of health that impacted care today? How? (Homelessness, low income, unemployed, alcoholism, drug addiction, transportation, low edu. Level, literacy, decrease access to med. care, fpc, rehab)? @ -No Was there de-escalation of care discussed even if they declined (Discuss DNR or withdrawal of care, Hospice)? DNR status @ -No What co-morbidities impacted this encounter? (DM, HTN, Smoking, COPD, CAD, Cancer, CVA, ARF, Chemo, Hep., AIDS, mental health diagnosis, sleep apnea, morbid obesity)? @ -Asthma, hypertension Was patient admitted / discharged? Hospital course, mention meds given and route, prescriptions, significant lab abnormalities, going to OR and other pertinent info. @ -Discharge patient's greatly improved, SHORTNESS breath has resolved after Du oNeb treatment, Solu-Medrol. Chest x-ray is unremarkable. Patient be discharged with prednisone return parameters were discussed. Undiagnosed new problem with uncertain prognosis? @ -No Drug Therapy requiring intensive monitoring for toxicity (Heparin, Nitro, Insulin, Cardizem)? @ -No Were any procedures done? @ -No Diagnosis/symptom? @ -Acute asthma exacerbation Acute, or Chronic, or Acute on Chronic? @ -Acute Uncomplicated (without systemic symptoms) or Complicated (systemic symptoms)? @ -Complicated Side effects of treatment? @ -No Exacerbation, Progression, or Severe Exacerbation? @ -Exacerbation Poses a threat to life or bodily function? How? (Chest pain, USA, MA, pneumonia, PE, COPD, DKA, ARF, appy, cholecystitis, CVA, Diverticulitis, Homicidal, Suicidal, threat to staff... and all critical care pts) @ -Yes could lead to respiratory failure Disposition Clinical Impression: Acute asthma exacerbation Disposition: HOME SELF-CARE Condition: Stable Instructions (If sedation given, give patient instructions): Asthma (ED) Additional Instructions: Please return to the Emergency Department if symptoms worsen or any other concerns. Prescriptions: predniSONE 50 mg PO DAILY #5 tab Is patient prescribed a controlled substance at d/c from ED?: No Referrals: Kit Bhatt DO [Primary Care Provider] - 1-2 days Time of Disposition: 06:53
[2023-05-23 07:07] VITALS: BP 167/89; PULSE 71; RESP 20
--- NOTE | 2023-05-23 07:23 | XR ---
EXAMINATION TYPE: XR chest 2V DATE OF EXAM: 05/23/2023 6:40 AM COMPARISON: Chest radiographs from 02/14/2023 TECHNIQUE: XR chest 2V Frontal and lateral views of the chest. CLINICAL INDICATION:Male, 52 years old with history of sob; FINDINGS: Lungs/Pleura: Prominent interstitial lung markings are seen scattered throughout the lungs with incre ased lucency of the lung apices. No evidence of focal consolidation, pneumothorax or pleural effusion . Pulmonary vascularity: Unremarkable. Heart/mediastinum: Cardiomediastinal silhouette is unremarkable. Musculoskeletal: No acute osseous pathology. IMPRESSION: 1. No acute cardiopulmonary disease process. 2. COPD changes.
== END 2023-05-23 07:06 | disposition home or self-care (01) ==
LOC: EC 05:17
DX: J45.901 Unspecified asthma with (acute) exacerbation (principal); I10 Essential (primary) hypertension; Z79.899 Other long term (current) drug therapy
CPT/HCPCS: 94640; 93005; 71046; 99285; 96372; J2930

== ENCOUNTER → 2025-02-04 | Outpatient (CLI) | payer BC ==
--- NOTE | 2025-02-04 20:58 | US ---
EXAMINATION TYPE: US abdomen limited DATE OF EXAM: 02/04/2025 COMPARISON: NONE CLINICAL INDICATION: Male, 54 years old with history of R74.8 ELEVATED ENZYMES; Elevated enzymes. No abdominal pain TECHNIQUE: Grayscale and color Doppler imaging of the right upper quadrant. 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 Pancreas: Obscured by gas Liver: Limited, measures enlarged. Portion of left lobe visualized. Most images were taken intercost al. Appears echogenic. Gallbladder: Extremely limited evaluation. ?Question possible echogenic material within versus art ifact. The GB appears partially contracted. Possible hyperechoic focus within versus outside of the g allbladder: 1.1 x 1.3 x 0.6 cm. Evidence for sonographic Domingo's sign: No CBD: Obscured Right Kidney: No hydronephrosis or masses seen IMPRESSION: 1. Very limited exam due to excessive bowel gas. 2. There is mild hepatomegaly at 18.0 cm with at least moderate hepatic steatosis. Appropriate clinic al management is advised. 3. The bile duct was obscured and could not be evaluated. 4. Additionally, limited assessment of the gallbladder. Unable to exclude underlying gallstones versu s echogenic bowel gas adjacent to the gallbladder. [facility], , 02/04/2025 8:56 PM
== END | disposition home or self-care (01) ==
LOC: RADUSWWP 09:14
PROVIDERS: ATTEND Family Medicine
DX: K76.0 Fatty (change of) liver, not elsewhere classified (principal); R16.0 Hepatomegaly, not elsewhere classified; R74.8 Abnormal levels of other serum enzymes; R14.3 Flatulence
CPT/HCPCS: 76705